=== PATIENT | male | born 1980 | race Caucasian/White ===

== ENCOUNTER 2025-08-03 22:23 | Emergency (ER) | payer OTHER ==
[2025-08-03] MEDS: methylPREDNISolone Sodium Succinate 125 MG/2 ML SDV IVPUSH ONE (22:34)
[2025-08-03 22:35] LABS: BASOPHILS ABSOLUTE AUTO 0.06 10^3/uL (0.00-0.10); BASOPHILS PERCENT AUTO 0.8 % (0.0-1.0); EOSINOPHILS ABSOLUTE AUTO 0.19 10^3/uL (0.10-0.30); EOSINOPHILS PERCENT AUTO 2.7 % (1.0-3.0); IMMATURE GRAN ABSOLUTE AUTO 0.02 10^3/uL (0.00-0.04); IMMATURE GRAN PERCENT AUTO 0.3 % (0.0-0.4); LYMPHOCYTES ABSOLUTE AUTO 2.66 10^3/uL (1.00-4.00); LYMPHOCYTES PERCENT AUTO 37.6 % (20.0-40.0); MEAN PLATELET VOLUME 10.5 fL (7.4-10.4); MONOCYTES ABSOLUTE AUTO 0.59 10^3/uL (0.10-0.80); MONOCYTES PERCENT AUTO 8.3 % (2.0-8.0); NEUTROPHILS ABSOLUTE AUTO 3.55 10^3/uL (2.50-7.00); NEUTROPHILS PERCENT AUTO 50.3 % (50.0-70.0); PLATELET COUNT,PLT 168 10^3/uL (150-400); RED BLOOD CELL COUNT 5.79 10^6/uL (4.50-6.00); RED CELL DISTRIBUTION WIDTH 11.8 % (11.5-14.5); WHITE BLOOD CELL COUNT,WBC 7.07 10^3/uL (5.00-10.00)
[2025-08-03 23:29] LABS: ALANINE AMINOTRANSFERASE,ALT 21 U/L (14-63); ASPARTATE AMNIOTRANSFERASE,AST 12 U/L (15-37); BILIRUBIN TOTAL 0.4 mg/dL (0.2-1.0); BLOOD UREA NITROGEN,BUN 16 mg/dL (7-18); CARBON DIOXIDE,CO2 22.7 mmol/L (21.0-32.0); CHLORIDE,CL 106 mmol/L (98-107); CREATININE 1.08 mg/dL (0.51-1.17); EST CRCL DRUG DOSING (CG) 92.81 mL/min; GLUCOSE RANDOM 231 mg/dL (70-140); POTASSIUM,K 3.1 mmol/L (3.5-5.1); PROTEIN TOTAL,TP 6.4 g/dL (6.4-8.2); SODIUM,NA 142 mmol/L (136-145)
[2025-08-03 23:30] LABS: ESTIMATED GFR 85 mL/min (>=60)
[2025-08-04 00:46] VITALS: BP 160/102; PULSE 109
== END 2025-08-04 00:12 | disposition home or self-care (01) ==
LOC: KA.ED 22:23
DX: J45.901 Unspecified asthma with (acute) exacerbation (principal); R73.9 Hyperglycemia, unspecified; Z86.16 Personal history of COVID-19; Z88.6 Allergy status to analgesic agent; Z88.5 Allergy status to narcotic agent; Z88.8 Allergy status to other drugs, medicaments and biological substances; Z91.030 Bee allergy status; Z79.899 Other long term (current) drug therapy
CPT/HCPCS: 36415; 71046; 80053; 84484; 85025; 86140; 96361; 96374; 96375; 99284; 99285-25; A9270-GY; J1308; J2470; J2919; J7030; J7512